=== PATIENT | male | born 1995 | race Two or more races ===

== ENCOUNTER 2023-12-29 06:55 | Outpatient (CLI) | payer OTHER ==
--- NOTE | 2023-12-31 15:14 | MRI Report ---
PROCEDURE: Lumbar Spine WO INDICATIONS: LOW BACK PAIN TECHNIQUE: Noncontrast sagittal T1 spin echo and T2 fast echo, sagittal STIR, axial T1 and T2 fast spin echo thr ough the lumbar spine. In cases with scoliosis, additional coronal T2 fast spin echo may be performe d. COMPARISON: None. FINDINGS: Image quality: Excellent. Alignment and Curvature: There is normal bony alignment. Bone Marrow: Marrow is of normal overall signal. No acute vertebral body compression fractures. Spinal Cord: Conus medullaris terminates at the L1 level. 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 Paraspinous Soft Tissues: No paravertebral masses. T12-L1: Normal in appearance. L1-L2: Normal in appearance. L2-L3: Normal in appearance. L3-L4: Normal in appearance. L4-L5: Broad-based disc bulge with moderate loss of disc height. There is severe spinal canal narro wing at this level. Moderate left and mild to moderate right neural foraminal narrowing. L5-S1: Normal in appearance. IMPRESSION: Broad-based disc bulge at L4-5, resulting in severe spinal canal narrowing, moderate left and mild to moderate right neural foraminal narrowing. 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 Reviewed by: Donovan Bonilla MD on 12/31/2023 3:12 PM PST Approved by: Donovan Bonilla MD on 12/31/2023 3:12 PM PST Station ID: [id number]
== END 2023-12-29 06:56 | disposition home or self-care (01) ==
LOC: DI 06:55
DX: M51.36 Other intervertebral disc degeneration, lumbar region (principal); M48.061 Spinal stenosis, lumbar region without neurogenic claudication

== ENCOUNTER 2024-03-25 22:38 | Emergency (ER) | payer OTHER ==
[2024-03-25 23:19] VITALS: O2SAT 99
[2024-03-25 23:33] LABS: BILIRUBIN,URINE NEGATIVE (NEGATIVE); GLUCOSE, URINE (UA) NEGATIVE (NEGATIVE); KETONES,URINE (UA) TRACE mg/dL (NEGATIVE); LEUKOCYTE ESTERASE, URINE NEGATIVE (NEGATIVE); NITRITE,URINE NEGATIVE (NEGATIVE); OCCULT BLOOD,URINE NEGATIVE (NEGATIVE); PROTEIN,URINE NEGATIVE (NEGATIVE); UROBILINOGEN,URINE 0.2 (NORMAL) E.U./dL (NORMAL)
[2024-03-25 23:39] LABS: CLARITY,URINE CLEAR (CLEAR)
--- NOTE | 2024-03-25 23:55 | ED Physician Documentation ---
History of Present Illness - Stated complaint Stated Complaint: CONGESTION,SORE THROAT, - Chief complaint Chief Complaint: General - History obtained from History obtained from: Patient - Additonal information Additional information: The patient comes to the emergency department chief complaint of sore throat, nasal congestion, and cough for approximately the last week. He also has had some itchy eyes and states he thought he was just experiencing allergies. However, he also just took a trip to the [facility] which involved a flight each direction. He states that the symptoms began right after he got back. No fevers or chills. He does note that he just began having some dysuria today. No hematuria. He denies any abdominal pain. He is sexually monogamous with his male partner with whom he has been for some years. States his partner does not have any symptoms that he knows of. The patient denies any penile lesions. No discharge from his urethral meatus. No other complaints at this time. PD PAST MEDICAL HISTORY - Past Medical History Past Medical History: No - Past Surgical History Past Surgical History: No - Present Medications Home Medications: Ambulatory Orders Medication Instructions Recorded Confirmed Loratadine/Pseudoephedrine 1 each PO DAILY #20 tab 03/25/24 [Claritin-D 24 Hour Tablet] Multivitamin 1 tab PO DAILY 03/25/24 03/25/24 Phenazopyridine HCl [Pyridium] 200 mg PO TID PRN #6 tablet 03/25/24 - Allergies Allergies/Adverse Reactions: Allergies Allergy/AdvReac Type Severity Reaction Status Date / Time No Known Drug Allergies Allergy Verified 03/25/24 23:12 - Social History Does the pt smoke?: No Smoking Status: Never smoker Does the pt drink ETOH?: Yes Does the pt have substance abuse?: No - Immunizations Immunizations are current?: Yes PD ED PE NORMAL - Vitals Vital signs reviewed: Yes - General General: Alert and oriented X 3, No acute distress, Well developed/nourished - HEENT HEENT: Atraumatic, EOMI, Moist mucous membranes, Pharynx benign - Neck Neck: Supple, no meningeal sign, No adenopathy - Cardiac Cardiac: RRR, No murmur - Respiratory Respiratory: No respiratory distress, Clear bilaterally - Abdomen Abdomen: Soft, Non tender, Non distended - Derm Derm: Normal color, Warm and dry, No rash - Extremities Extremities: No deformity, No edema - Neuro Neuro: Other (Grossly intact) - Psych Psych: Normal mood, Normal affect Results - Vitals Vitals: Vital Signs - 24 hr 03/25/24 03/26/24 23:07 00:06 Temperature 36.9 C Heart Rate 87 80 Respiratory 20 19 Rate Blood Pressure 144/100 H 138/79 H O2 Saturation 99 99 Oxygen O2 Source Room air - Labs Labs: Laboratory Tests 03/25/24 03/25/24 23:20 23:22 Urine Color YELLOW Urine Clarity CLEAR Urine pH 6.0 Ur Specific [place] 1.025 Urine Protein NEGATIVE Urine Glucose (UA) NEGATIVE Urine Ketones TRACE Urine Occult Blood NEGATIVE Urine Nitrite NEGATIVE Urine Bilirubin NEGATIVE Urine Urobilinogen 0.2 (NORMAL) Ur Leukocyte Esterase NEGATIVE Ur Microscopic Review NOT INDICATED Urine Culture Comments NOT INDICATED Nasal Adenovirus (PCR) NOT DETECTED Nasal B. parapertussis DNA (PCR) NOT DETECTED Nasal Coronavir 229E PCR NOT DETECTED Nasal Coronavir HKU1 PCR NOT DETECTED Nasal Coronavir NL63 PCR NOT DETECTED Nasal Coronavir OC43 PCR NOT DETECTED Nasal Enterovir/Rhinovir PCR NOT DETECTED Nasal Influenza B PCR NOT DETECTED Nasal Influenza A PCR NOT DETECTED Nasal Parainfluen 1 PCR NOT DETECTED Nasal Parainfluen 2 PCR NOT DETECTED Nasal Parainfluen 3 PCR DETECTED A Nasal Parainfluen 4 PCR NOT DETECTED Nasal RSV (PCR) NOT DETECTED Nasal B.pertussis DNA PCR NOT DETECTED Nasal C.pneumoniae (PCR) NOT DETECTED [place] Human Metapneumo PCR NOT DETECTED Nasal M.pneumoniae (PCR) NOT DETECTED Nasal SARS-CoV-2 (PCR) NOT DETECTED PD Medical Decision Making - ED course Complexity details: reviewed results, re-evaluated patient, considered differential, d/w patient ED course: The patient was worked up with UA, which was negative, and respiratory PCR panel, which was positive from one of the parainfluenza virus strains. The patient was advised regarding the use of Pyridium for his dysuria. I discussed with the patient that while he has a viral upper respiratory infection, he may also to some degree be experiencing symptoms of allergies since this is something the patient has definitely had before and his eyes are itchy. I have prescribed Claritin-D for him. We have discussed the usual indications for return and follow-up. Departure - Departure Disposition: 01 Home, Self Care Clinical Impression: Dysuria Allergic rhinitis due to allergen Qualifiers: Allergic rhinitis trigger: other Allergic rhinitis seasonality: seasonal Qualified Code(s): J30.89 - Other allergic rhinitis URI (upper respiratory infection) Qualifiers: URI type: unspecified viral URI Qualified Code(s): J06.9 - Acute upper respiratory infection, unspecified Condition: Stable Instructions: ED Dysuria Uncertain Cause, ED Allergy Seasonal, ED URI Viral Prescriptions: Loratadine/Pseudoephedrine [Claritin-D 24 Hour Tablet] 1 each PO DAILY #20 tab Phenazopyridine HCl [Pyridium] 200 mg PO TID PRN #6 tablet PRN Reason: dysuria Comments: Your urinalysis is negative. Your viral panel is still pending and will be back in the next couple of hours. It is unclear why you are having the burning with urination but since this just started, it is likely that it will also blow over on its own without incident. I have prescribed a medication to help with this but you may take as needed. As far as your congestion, given that you had a sore throat it is likely that you picked up a viral illness while traveling. However, given your history of seasonal allergies, you may have some contribution from this, as well. The viral illness will go away on its own. The seasonal allergies are subject to the degree of exposure you are having to the thing that causes the allergy. I have prescribed an allergy medication for you to take as needed. Your prescriptions have both been electronically transmitted to the [facility] pharmacy in [place] and you may pick them up tomorrow. [place] Forms: PCP List Discharge Date/Time: 03/26/24 00:05
[2024-03-26 00:07] VITALS: BP 138/79
[2024-03-26 00:16] LABS: CORONAVIRUS 229E-RESP PCR NOT DETECTED; CORONAVIRUS HKU1-RESP PCR NOT DETECTED; CORONAVIRUS NL63-RESP PCR NOT DETECTED; CORONAVIRUS OC43-RESP PCR NOT DETECTED; HUMAN METAPNEUMOVIRUS NOT DETECTED; INFLUENZA A- RESP PCR PANEL NOT DETECTED; INFLUENZA B - RESP PCR PANEL NOT DETECTED; PARAINFLUENZA VIRUS 1 NOT DETECTED; PARAINFLUENZA VIRUS 2 NOT DETECTED; RHINOVIRUS/ENTEROVIRUS NOT DETECTED; SARS-CoV-2 -RESP PCR PANEL NOT DETECTED
[2024-03-26 00:17] LABS: B. PARAPERTUSSIS- RESP PCR PAN NOT DETECTED; B. PERTUSSIS- RESP PCR PANEL NOT DETECTED; C. PNEUMONIAE- RESP PCR PANEL NOT DETECTED; M. PNEUMONIAE- RESP PCR PANEL NOT DETECTED; PARAINFLUENZA VIRUS 3 DETECTED; PARAINFLUENZA VIRUS 4 NOT DETECTED; RSV- RESP PCR PANEL NOT DETECTED
[2024-03-28 01:08] LABS: CHLAMYDIA TRACHOMATIS, NAA Negative (Negative); NEISSERIA GONORRHOEAE, NAA Negative (Negative)
== END 2024-03-26 00:05 | disposition home or self-care (01) ==
LOC: ED 22:38
DX: J06.9 Acute upper respiratory infection, unspecified (principal); B34.8 Other viral infections of unspecified site; J30.89 Other allergic rhinitis; R30.0 Dysuria
CPT/HCPCS: 81001; 81003; 87086; 87491; 87591; 87633; 99283